=== PATIENT | male | born 1995 | race Caucasian/White ===

== ENCOUNTER 2022-10-28 12:17 | Emergency (ER) | payer OTHER ==
[~2022-10-28] VITALS: Ht 172.7 cm; Wt 64.2 kg
[2022-10-28 12:29] VITALS: BP 102/65; PULSE 72; RESP 20; TEMP 98.4; O2SAT 100
[2022-10-28] MEDS ORDERED: CEPH500C16 PO (13:38)
[2022-10-28] MEDS ORDERED: IBUP-2213 PO (13:38)
[2022-10-28] MEDS ORDERED: SULF-59 PO (13:38)
[2022-10-28 15:32] VITALS: BP 102/65; PULSE 72; RESP 20; TEMP 98.4; O2SAT 100
--- NOTE | 2022-10-28 15:32 | NUR ---
CALLED PT IN [place]OB[place] WITH NO ANSWER
== END 2022-10-28 15:32 | disposition home or self-care (01) ==
LOC: MED 12:17
DX: L03.113 Cellulitis of right upper limb (principal); Z79.899 Other long term (current) drug therapy
CPT/HCPCS: 99282